=== PATIENT | male | born 1995 | race Hispanic/Latino ===

== ENCOUNTER 2018-08-04 23:58 | Emergency (ER) | payer SELFPAY ==
[2018-08-05] MEDS ORDERED: KETOROLAC TROMETHAMINE 60 MG/2 ML VIAL ONE (00:38)
[2018-08-05] MEDS ORDERED: DEXAMETHASONE SOD PHOSPHATE 10MG/ML 1ML VIAL ONE (00:38)
[2018-08-05] MEDS ORDERED: HYDROCODONE/ACETAMINOPHEN 10/325 MG TAB ONE (00:39)
== END 2018-08-05 01:11 | disposition home or self-care (01) ==
LOC: EDH 23:58
DX: M54.5 Low back pain (principal); Z72.0 Tobacco use
CPT/HCPCS: 96372 ×2; 99283; J1100; J1885